=== PATIENT | female | born 1985 | race Caucasian/White ===

== ENCOUNTER 2017-10-16 16:47 | Emergency (ER) | payer MEDICAID ==
[2017-10-16 17:45] LABS: URINE BLOOD (Dip) POC 2+ (NEGATIVE); URINE GLUCOSE (Dip) POC Negative (NEGATIVE); URINE KETONES (Dip) POC Negative (NEGATIVE); URINE LEUKOCYTE EST (Dip) POC 1+ (NEGATIVE); URINE NITRITE (Dip) POC Negative (NEGATIVE); URINE TOTAL PROTEIN POC Negative (NEGATIVE)
[2017-10-16 17:45] LABS: URINE PH (Dip) POC 5.5 (5.0-8.5)
[2017-10-16] MEDS: IBUPROFEN 200 MG TAB PO (18:09)
== END 2017-10-16 19:46 | disposition home or self-care (01) ==
LOC: FTE 16:47
DX: N39.0 Urinary tract infection, site not specified (principal)
CPT/HCPCS: 76775; 81003; 81025; 99284-25

== ENCOUNTER 2018-07-17 12:50 | Emergency (ER) | payer MEDICAID | END 2018-07-17 17:19 | disposition home or self-care (01) | LOC: FTE 12:50 | DX: L02.211 Cutaneous abscess of abdominal wall (principal) | CPT/HCPCS: 99283; Z7502 ==

== ENCOUNTER 2018-11-24 22:43 | Emergency (ER) | payer MEDICAID ==
[2018-11-25 00:08] LABS: ADD UMIC YES; UR ASCORBIC ACID NEGATIVE (NEGATIVE); UR BACTERIA FEW /HPF (NONE SEEN); UR BILIRUBIN (Dip) NEGATIVE (NEGATIVE); UR BLOOD (Dip) 3+ mg/dL (NEGATIVE); UR CLARITY CLOUDY (CLEAR); UR COLOR YELLOW (YELLOW); UR GLUCOSE (Dip) NEGATIVE (NEGATIVE); UR KETONES (Dip) TRACE mg/dL (NEGATIVE); UR LEUKOCYTE ESTERASE (Dip) 2+ Leu/ul (NEGATIVE); UR MUCUS FEW /HPF (NONE SEEN); UR NITRITE (Dip) NEGATIVE (NEGATIVE); UR RBC 24 /HPF (0-5); UR SPECIFIC GRAVITY (Dip) 1.027 (1.003-1.030); UR SQUAMOUS EPITHELIAL CELL MODERATE /HPF (FEW); UR TOTAL PROTEIN (Dip) 2+ mg/dl (NEGATIVE); UR UROBILINOGEN (Dip) NEGATIVE (NEGATIVE); UR WBC 10 /HPF (0-5)
[2018-11-25] MEDS: SOD CHLORIDE 0.9% 1,000 ML IV (00:17)
[2018-11-25] MEDS: METOCLOPRAMIDE 10 MG INJ IV (00:20)
[2018-11-25] MEDS: DIPHENHYDRAMINE 50 MG INJ IV (00:20)
[2018-11-25] MEDS: TRIMETHOPRIM/SULFAMETHOX (DS) TAB PO (00:56)
[2018-11-25] MEDS: SUMATRIPTAN 6 MG/0.5 ML INJ SC (01:23)
== END 2018-11-25 01:38 | disposition home or self-care (01) ==
LOC: FTE 11-25 01:38
DX: G43.909 Migraine, unspecified, not intractable, without status migrainosus (principal); N39.0 Urinary tract infection, site not specified
CPT/HCPCS: 81001; 81025; 96372; 96374; 96375; 99284-25